=== PATIENT | male | born 1985 | race Caucasian/White ===

== ENCOUNTER 2017-08-25 14:42 | Emergency (ER) | payer SELFPAY | END 2017-08-25 17:28 | disposition home or self-care (01) | LOC: D.ER 14:42 | DX: J09.X2 Influenza due to identified novel influenza A virus with other respiratory manifestations (principal) ==

== ENCOUNTER 2018-08-13 14:12 | Emergency (ER) | payer SELFPAY ==
[~2018-08-13] VITALS: Ht 188 cm; Wt 104.5 kg
[2018-08-13 14:25] VITALS: Ht 188 cm; Wt 104.5 kg
[2018-08-13] MEDS ORDERED: VIBRAMYCIN 100100 MG PO (16:36)
[2018-08-13] MEDS ORDERED: PHENERGAN DM SYR5 ML PO (16:36)
[2018-08-13 17:30] VITALS: BP 131/89
== END 2018-08-13 17:30 | disposition home or self-care (01) ==
LOC: D.ER 14:12
DX: J06.9 Acute upper respiratory infection, unspecified (principal); R09.89 Other specified symptoms and signs involving the circulatory and respiratory systems; R50.9 Fever, unspecified

== ENCOUNTER 2019-10-08 11:17 | Emergency (ER) | payer SELFPAY ==
[~2019-10-08] VITALS: Ht 188 cm; Wt 109.1 kg
[~2019-10-08 11:17] MED LIST: PHENERGAN DM SYR5 ML PO; VIBRAMYCIN 100100 MG PO
[2019-10-08 11:55] VITALS: BP 155/115; Ht 188 cm; Wt 109.1 kg
[2019-10-08] MEDS ORDERED: EC-NAPROSYN500 MG PO (13:15)
[2019-10-08] MEDS ORDERED: PENICILLIN V P500 MG PO (13:15)
== END 2019-10-08 13:33 | disposition home or self-care (01) ==
LOC: D.ER 11:17
DX: K02.9 Dental caries, unspecified (principal); K04.7 Periapical abscess without sinus

== ENCOUNTER 2020-02-19 15:49 | Emergency (ER) | payer SELFPAY ==
[~2020-02-19] VITALS: Ht 188 cm; Wt 109.1 kg
[~2020-02-19 15:49] MED LIST changes: +EC-NAPROSYN500 MG PO; +PENICILLIN V P500 MG PO
[2020-02-19 15:50] VITALS: Ht 188 cm; Wt 109.1 kg
[2020-02-19 17:18] VITALS: BP 138/96
== END 2020-02-19 17:19 | disposition home or self-care (01) ==
LOC: D.ER 15:49
DX: S05.92XA Unspecified injury of left eye and orbit, initial encounter (principal); S05.02XA Injury of conjunctiva and corneal abrasion without foreign body, left eye, initial encounter; W22.8XXA Striking against or struck by other objects, initial encounter; Y93.9 Activity, unspecified; Y92.9 Unspecified place or not applicable